=== PATIENT | female | born 1970 | race Caucasian/White ===

== ENCOUNTER 2017-06-24 21:53 | Inpatient (IN) | payer OTHER ==
[2017-06-24] MEDS ORDERED: Activated Charcoal/Sorbitol 25 GM/120 ML TUBE ONE (22:08)
[2017-06-24 22:55] LABS: #Basophils 0.1 thou/uL (0.0-0.2); #Eosinphils 0.2 thou/uL (0.0-0.7); #Lymphocytes 2.5 thou/uL (1.20-3.40); #Monocytes 0.6 thou/uL (0.11-0.59); #Neutrophils 3.1 thou/uL (1.40-6.50); %Basophils 1.5 % (0.0-1.0); %Eosinophils 2.8 % (0.0-10.0); %Lymphocytes 38.6 % (21.0-51.0); %Monocytes 8.6 % (0.0-10.0); Hematocrit 44.4 % (36.0-47.0); Mean Platelet Volume 8.1 fL (7.4-10.4); Red Blood Cell (RBC) Count 4.61 mill/uL (4.20-5.40); White Blood Cell (WBC) Count 6.4 thou/uL (4.8-10.8)
[2017-06-24 23:16] LABS: ALT (SGPT) 9 U/L (8-55); AST (SGOT) 15 U/L (5-34); Acetaminophen Less than 6.0 mcg/mL (10.0-30.0); Alkaline Phosphatase 68 U/L (40-150); Anion Gap 10 mmol/L (10-20); BUN (Urea Nitrogen) 9 mg/dL (7.0-18.7); Bilirubin, Total 0.4 mg/dL (0.2-1.2); Calc. Creatinine Clearance 0 mL/min (70-130); Calcium 9.4 mg/dL (7.8-10.44); Carbon Dioxide 29 mmol/L (22-29); Chloride 103 mmol/L (98-107); Estimated GFR-MDRD 79; Globulin 3.2 g/dL (2.4-3.5); Protein, Total 7.3 g/dL (6.0-8.3); Salicylate Less than 8.0 mg/dL (15.0-30.0)
[2017-06-24 23:30] LABS: Bilirubin Negative (Negative); Blood, Urine Small (Negative); Glucose, Urine (Dipstick) Negative (Negative); Ketone, Urine Negative (Negative); Nitrite Negative (Negative); Protein, Urine (Dipstick) Negative (Neg-Trace); Urobilinogen 0.2 mg/dL (0.2-1.0)
[2017-06-24 23:32] LABS: Bacteria/HPF Rare-Few HPF (None Seen); Squamous Epithelial 0-3 HPF (0-3)
[2017-06-24 23:42] LABS: Methamphetamine Not Detected (NotDetected)
[2017-06-24 23:43] LABS: Amphetamine Not Detected (NotDetected); Methadone Not Detected (NotDetected)
[2017-06-24 23:46] LABS: Hyaline Casts/LPF NONE SEEN LPF (0-3 Hyaline); Yeast-All Forms None Seen HPF (None Seen)
[2017-06-25] MEDS ORDERED: Mag-Al 1200 mg/1200 mg/30 ML UDCUP PO PRN (02:03)
[2017-06-25] MEDS ORDERED: Guaifenesin DM 100-10/5 ML UDCUP PO PRN (02:03)
[2017-06-25] MEDS ORDERED: Acetaminophen 325 MG TAB PO PRN (02:03)
[2017-06-25] MEDS ORDERED: Sodium Chloride 0.9% 1,000 ML IV SCH (02:30)
[2017-06-25 04:33] LABS: #Basophils 0.1 thou/uL (0.0-0.2); #Eosinphils 0.1 thou/uL (0.0-0.7); #Lymphocytes 2.4 thou/uL (1.20-3.40); #Monocytes 0.5 thou/uL (0.11-0.59); #Neutrophils 3.3 thou/uL (1.40-6.50); %Basophils 1.1 % (0.0-1.0); %Eosinophils 2.2 % (0.0-10.0); %Lymphocytes 38.1 % (21.0-51.0); %Monocytes 7.9 % (0.0-10.0); Hematocrit 44.4 % (36.0-47.0); Mean Platelet Volume 8.6 fL (7.4-10.4); Red Blood Cell (RBC) Count 4.62 mill/uL (4.20-5.40); White Blood Cell (WBC) Count 6.4 thou/uL (4.8-10.8)
[2017-06-25 05:31] LABS: ALT (SGPT) 10 U/L (8-55); AST (SGOT) 15 U/L (5-34); Alkaline Phosphatase 67 U/L (40-150); Anion Gap 10 mmol/L (10-20); BUN (Urea Nitrogen) 9 mg/dL (7.0-18.7); Bilirubin, Total 0.5 mg/dL (0.2-1.2); Calc. Creatinine Clearance 0 mL/min (70-130); Calcium 9.4 mg/dL (7.8-10.44); Carbon Dioxide 28 mmol/L (22-29); Chloride 104 mmol/L (98-107); Estimated GFR-MDRD 50; Globulin 3.2 g/dL (2.4-3.5); Protein, Total 7.4 g/dL (6.0-8.3)
--- NOTE | 2017-06-25 05:54 | HP ---
REASON FOR ADMISSION: Overdose on 10 Ambien, 6 Xanax, plus unknown Benadryl. HISTORY OF PRESENT ILLNESS: Please note the majority of this history is obtained by my talking to ER physician and ER records as the patient is drowsy. The patient apparently was awake and told the ER physician that she took 10 tablets of Ambien, 6 tablets of Xanax, plus a couple of Benadryl to help her sleep. She apparently told the ER physician that she was not trying to hurt herself, all she wanted to do is sleep. Per , she has been following up with the psychiatrist in the outpatient setting and had a last follow up 2 months back. was concerned and wanted the patient to be hospitalized to Inpatient Psychiatric Unit per ER physician. PAST MEDICAL AND SURGICAL HISTORY: Anxiety, depression, and tubal ligation. CURRENT MEDICATIONS: Patient is on clonazepam 0.5 mg twice daily, Ambien 10 mg p.o. at bedtime, Prozac 40 mg p.o. daily, sertraline 100 mg. ALLERGIES: No known drug allergies. PERSONAL HISTORY: Patient drinks one bottle of wine on a daily basis. Does not smoke or abuse drugs. Lives with her . FAMILY HISTORY: Mother in her 60s, had history of diabetes and coronary artery disease. Father of massive SD at the age of 55 years. REVIEW OF SYSTEMS: The following complete review of systems was negative, unless otherwise mentioned in the HPI or below: Constitutional: Weight loss or gain, ability to conduct usual activities. Skin: Rash, itching. Eyes: Double vision, pain. ENT/Mouth: Nose bleeding, neck stiffness, pain, tenderness. Cardiovascular: Palpitations, dyspnea on exertion, orthopnea. Respiratory: Shortness of breath, wheezing, cough, hemoptysis, fever or night sweats. Gastrointestinal: Poor appetite, abdominal pain, heartburn, nausea, vomiting, constipation, or diarrhea. Genitourinary: Urgency, frequency, dysuria, nocturia. Musculoskeletal: Pain, swelling. Neurologic/Psychiatric: Anxiety, depression. Allergy/Immunologic: Skin rash, bleeding tendency. PHYSICAL EXAMINATION: GENERAL: The patient is a 46-year-old female who is currently lethargic and is needing 2-3 prompts to wake up. VITAL SIGNS: Blood pressure 136/94, pulse 74 per minute, respiratory rate 18 per minute, saturating 100% on room air, temperature is 97.5 degrees Fahrenheit. NECK: Supple. No elevated JVD. HEENT: Eyes, extraocular muscles intact. Pupils reacting to light. Oral cavity, mucous membranes are moist. No exudates or congestion. CARDIOVASCULAR: S1, S2 heard. Regular rhythm. RESPIRATORY: Air entry 2+ bilateral. Scattered rhonchi plus bilateral. ABDOMEN: Soft, bowel sounds heard. No tenderness, rigidity, or guarding. EXTREMITIES: No peripheral edema or calf tenderness. VASCULAR SYSTEM: Peripheral pulses 1+ bilateral. No ischemic ulcerations or gangrene. CENTRAL NERVOUS SYSTEM: Patient is drowsy and lethargic at present. No focal deficits seen. She moves all 4 extremities. PSYCHIATRIC: Cannot be accurately assessed as patient is very lethargic at present. LABORATORY AND X-RAY FINDINGS: White count of 6, H and H 14 and 44, platelet count 220 with 48% neutrophils. Electrolytes are stable. BUN 9, creatinine 0.7 , glucose 103. Liver enzymes are within normal limits. Albumin is 4.1. Urine drug screen is negative. Plasma alcohol less than 10, acetaminophen less than 6 , salicylates less than 8. EKG done shows sinus bradycardia at 59 beats per minute. CLINICAL IMPRESSION AND PLAN: Patient will be admitted to ICU for overdose on 10 tablets of 10 mg Ambien, 6 tablets of Xanax, plus Benadryl and with her history of drinking a bottle of wine daily. She will be closely monitored in ICU for 24 hours prior to downgrade. She will also be on aspiration and fall precautions. She will be on normal saline at 60 mL per hour. We will consult Dr. Dawson for Pulmonary Critical Care. She will be on oxygen until she completely wakes up. We will obtain [facility] consultation when she is more awake for help with disposition from the hospital. JADON
[2017-06-25] MEDS ORDERED: Acetaminophen 325 MG TAB ONE (08:02)
[2017-06-25] MEDS ORDERED: Enoxaparin Sodium 40 MG/0.4 ML SYRINGE SC SCH (09:00)
--- NOTE | 2017-06-25 18:45 | DIS ---
DISCHARGE DIAGNOSES: 1. Benzodiazepine overdose. 2. Anxiety disorder. 3. Depression. HOSPITAL COURSE: After the patient was admitted from the ER, the initial step was to admit the patie nt to the ICU due to overdose. Although lethargic, she was breathing on her own and was able to resp ond to commands; therefore intubation was not required. While ICU bed was waiting to be available, t he patient's lethargy had improved significantly. The patient was now conversing with people in the ER with staff there as well as ambulating to the restroom with no instability or issues. At that beto cox spoke with the patient and it was thought that initially she had suicidal ideations. Therefore, [facility] inpatient psych team was consulted to evaluate the patient. They deemed the patient a harm to hers elf. Therefore, they felt that she meet the criteria for inpatient. The patient did not suffer any end-organ damage. Labs were negative. There were no further interventions that are required at this time. Therefore, the patient was medically cleared to be discharged to inpatient psych when a bed b ecame available. DISCHARGE CONDITION: Much improved when she first came in. DISCHARGE ACTIVITY: As tolerated. DISCHARGE MEDICATIONS: See home medications which will be adjusted by the inpatient psych team. DISCHARGE DISPOSITION: To inpatient psych. DISCHARGE DIET: Regular diet. DISCHARGE ACTIVITY: As tolerated. FOLLOWUP APPOINTMENT: The patient will follow up with the appropriate psych team as per the recommen dations. DISCHARGE PLAN: Discharge planning was greater than 30 minutes.
--- NOTE | 2017-06-28 13:26 | EKG ---
Test Reason : OVERDOSE Blood Pressure : / mmHG Vent. Rate : 059 BPM Atrial Rate : 059 BPM P-R Int : 096 ms QRS Dur : 090 ms QT Int : 432 ms P-R-T Axes : 037 081 033 degrees QTc Int : 427 ms Sinus bradycardia with short LA RSR' or QR pattern in V1 suggests right ventricular conduction delay Nonspecific T wave abnormality Abnormal ECG Confirmed by MUKUL WHEATLEY MD ([id number]), television news video editor SOO ADAN ([id number]) on 06/28/2017 1:26:10 PM Referred By: Confirmed By:MUKUL WHEATLEY MD
== END 2017-06-25 14:05 | DRG 918 ==
LOC: ERS 21:53 → ERHOLD 23:40
PROVIDERS: ADMIT Internal Medicine; ATTEND Internal Medicine
DX: T42.6X1A Poisoning by other antiepileptic and sedative-hypnotic drugs, accidental (unintentional), initial encounter (principal); F32.9 Major depressive disorder, single episode, unspecified; T42.4X1A Poisoning by benzodiazepines, accidental (unintentional), initial encounter; T45.0X1A Poisoning by antiallergic and antiemetic drugs, accidental (unintentional), initial encounter; F41.9 Anxiety disorder, unspecified; R40.0 Somnolence; Y92.009 Unspecified place in unspecified non-institutional (private) residence as the place of occurrence of the external cause; Z82.49 Family history of ischemic heart disease and other diseases of the circulatory system; Z83.3 Family history of diabetes mellitus
CPT/HCPCS: 36415; 80053; 80306; 80307; 81003; 81015; 82550; 84443; 85025; 93005

== ENCOUNTER 2022-09-16 06:13 | Day surgery (SDC) | payer BC ==
[2022-09-15 10:32] VITALS: BMI 26.5
[~2022-09-16 06:13] MED LIST: Fluorouracil 100 MG, Enoxaparin 25 MG, EPINEPHrine 0.3 MG in Ophthalmic Irrigation Solu... IRR SCH
[2022-09-16] MEDS ORDERED: Midazolam HCl 2 mg/2 ml Vial ONE (06:52)
[2022-09-16] MEDS ORDERED: fentaNYL PF 100 MCG/2 ML SYRINGE ONE (06:52)
[2022-09-16] MEDS ORDERED: Phenylephrine 2.5% Ophth Soln 5 ML BOT ONE (06:54)
[2022-09-16] MEDS ORDERED: Cyclopentolate 1% Opth Drop 2 ML BOT ONE (06:54)
[2022-09-16] MEDS ORDERED: Famotidine/PF 20 mg/2ml Vial ONE (07:58)
[2022-09-16] MEDS ORDERED: Lidocaine 1% PF 5 ML VIAL ONE (08:02)
[2022-09-16] MEDS ORDERED: Maxitrol 0.1% Opth Oint 3.5 GM TUBE ONE (08:02)
[2022-09-16] MEDS ORDERED: Ondansetron PF 4 MG/2 ML Vial ONE ×2 (08:02→10:27)
[2022-09-16] MEDS ORDERED: Lidocaine 4% PF 5 ML AMP ONE (08:02)
[2022-09-16] MEDS ORDERED: CEFAZOLIN 1 GM VIAL ONE (08:02)
[2022-09-16] MEDS ORDERED: Glycopyrrolate 0.2 MG/ML 5 ML SYRINGE ONE (08:02)
[2022-09-16] MEDS ORDERED: Bupivacaine 0.75% 10 ML VIAL ONE (08:02)
[2022-09-16] MEDS ORDERED: PROPOFOL 200 MG/20 ML VIAL ONE (08:02)
[2022-09-16] MEDS ORDERED: ePHEDrine 50 MG/ML VIAL ONE (08:02)
[2022-09-16] MEDS ORDERED: Triamcinolone 40 MG/ML VIAL ONE (08:02)
[2022-09-16] MEDS ORDERED: PHENYLEPHRINE-NS 100 MCG/ML 10 ML SYRINGE ONE (08:02)
[2022-09-16] MEDS ORDERED: Morphine 2 MG/ML VIAL ONE (10:36)
[2022-09-16] MEDS ORDERED: Promethazine HCl 25 MG/ML VIAL ONE (10:40)
== END 2022-09-16 11:32 | disposition home or self-care (01) ==
LOC: SDC 06:13
PROVIDERS: ATTEND Ophthalmology Retina Specialist
PROC: 08T43ZZ Resection of Right Vitreous, Percutaneous Approach (ICD-10-PCS; principal; 2022-09-16)
PROC: 08QE3ZZ Repair Right Retina, Percutaneous Approach (ICD-10-PCS; principal; 2022-09-16)
PROC: 08U00JZ Supplement of Right Eye with Synthetic Substitute, Open Approach (ICD-10-PCS; principal; 2022-09-16)
DX: H33.41 Traction detachment of retina, right eye (principal); Z79.899 Other long term (current) drug therapy
CPT/HCPCS: C1776; J0171; J0690; J1650; J2250; J2272; J2405; J2550; J2704; J3301; J3490; J9190; S0028